=== PATIENT | female | born 1980 | race Caucasian/White ===

== ENCOUNTER 2020-04-19 22:17 | Emergency (ER) | payer SELFPAY ==
[~2020-04-19] VITALS: Ht 152.4 cm; Wt 70.5 kg
[2020-04-19 23:45] VITALS: BP 172/95
== END 2020-04-19 23:40 ==
LOC: ER 22:18
DX: R07.89 Other chest pain (principal); R10.31 Right lower quadrant pain; F10.129 Alcohol abuse with intoxication, unspecified; F17.200 Nicotine dependence, unspecified, uncomplicated; Z72.89 Other problems related to lifestyle; Y90.9 Presence of alcohol in blood, level not specified; V89.2XXA Person injured in unspecified motor-vehicle accident, traffic, initial encounter; Y93.89 Activity, other specified; Y92.89 Other specified places as the place of occurrence of the external cause; Y99.8 Other external cause status
CPT/HCPCS: 71045; 72040; 99284